=== PATIENT | female | born 1970 | race Two or more races ===

== ENCOUNTER 2022-01-19 18:26 | Emergency (ER) | payer SELFPAY ==
[~2022-01-19] VITALS: Ht 165.1 cm; Wt 64.0 kg
[2022-01-19] MEDS ORDERED: IBUPROFEN 600MG TABLET PO ONE (22:15)
[2022-01-19] MEDS ORDERED: METHOCARBAMOL 500MG TABLET PO ONE (22:15)
[2022-01-20] MEDS ORDERED: IBUPROFEN 600MG TABLET PO NR (01:15)
[2022-01-20] MEDS ORDERED: METHOCARBAMOL 500MG TABLET PO NR (01:15)
[2022-01-20 02:28] VITALS: BP 128/75
[2022-01-20] MEDS ORDERED: IBUP-2029 MT (03:13)
== END 2022-01-20 03:58 | disposition home or self-care (01) ==
LOC: ER 18:26
DX: S39.81XA Other specified injuries of abdomen, initial encounter (principal); S76.812A Strain of other specified muscles, fascia and tendons at thigh level, left thigh, initial encounter; M54.9 Dorsalgia, unspecified; I10 Essential (primary) hypertension; V43.52XA Car driver injured in collision with other type car in traffic accident, initial encounter; Y93.89 Activity, other specified; Y92.410 Unspecified street and highway as the place of occurrence of the external cause
CPT/HCPCS: 71045; 72100; 73100; 73560; 74176; 99284